=== PATIENT | female | born 1980 | race African-American/Black ===

== ENCOUNTER 2017-06-24 11:54 | Emergency (ER) | payer BC ==
[~2017-06-24] VITALS: Ht 170.2 cm; Wt 70.6 kg
[~2017-06-24 11:54] MED LIST: NEURONTIN100 MG PO; NOHOMEMEDS; VALIUM2 MG PO
[2017-06-24 12:15] VITALS: BP 136/83
[2017-06-24] MEDS ORDERED: ULTRAM50 MG PO (15:24)
== END 2017-06-24 16:18 | disposition home or self-care (01) ==
LOC: EME 11:54
DX: S00.83XA Contusion of other part of head, initial encounter (principal); Y04.2XXA Assault by strike against or bumped into by another person, initial encounter; Z88.6 Allergy status to analgesic agent
CPT/HCPCS: 70110; 99281; 99283